=== PATIENT | female | born 1960 | race Hispanic/Latino ===

== ENCOUNTER → 2017-06-15 | Outpatient (CLI) | payer OTHER ==
[~2017-06-15] MED LIST: ABIL1TAB11 PO; ACID1CAP PO; ASPI1TAB PO; CALC600T60 PO; CARI350T PO; CENTTAB PO; CLON2TAB14 PO; COLA100C5 PO; COQ-200C PO; CRES40TA PO; CYTO50TA PO; D 50CAP PO; DIGO0.259 PO; FARX1TAB3 PO; FENO1CAP2 PO; FIOR1CAP PO; GABA-283 PO; GINK40TA3 PO; GREE150C PO; INSULADS SC; JANU50TA8 PO; LEVO88TA3 PO; LOMO2.5T PO; MAGN250T6 PO; METO1TAB7 PO; PHEN15TA11 PO; PROM12.55 PO; RANO5TAB PO; SUPETAB25 PO; VITA400C97 PO; VITAMIN B2; ZETI10TA30 PO; ZONI25CA2 PO; [UNRECOGNIZED DRUG - OTHER] PO
--- NOTE | 2017-06-15 12:56 | REPMRS ---
Patient History The patient states she had a clinical breast exam in 2016.Family history of ovarian cancer in maternal grandmother at age 68, breast cancer in 3 maternal cousins at age 50 or over, and colorectal cancer in brother at age 56. Retro-pectoral saline implants in both breasts, November 01, 1998. 5 pound weight loss since last mammogram. Digital Mammo Diagnostic Bilateral: June 15, 2017 - Exam #: [id number] Bilateral CC and MLO view(s) were taken. Technologist: Miracle Goldsmith, Technologist Prior study comparison: May 12, 2016, bilateral digital mammo screening bilat performed at [facility]. May 09, 2015, bilateral digital mammo screening bilat performed at [facility]. FINDINGS: There are scattered fibroglandular densities. There is a fairly symmetric fibroglandular pattern in both breasts. There has been no interval development of masses, areas of architectural distortion or clusters of microcalcifications typical of malignancy. ASSESSMENT: BI-RADS/ACR category 2 mammogram. Benign finding(s). Recommendation Routine screening mammogram of both breasts in 1 year (for women over age 40). This mammogram was interpreted with the aid of an FDA-approved computer-aided dectection system. Electronically Signed By: Will Beebe MD 06/15/17 [id number]
== END ==
LOC: M RAD 09:39
PROVIDERS: ATTEND Obstetrics & Gynecology
DX: Z12.31 Encounter for screening mammogram for malignant neoplasm of breast (principal); Z98.82 Breast implant status; Z80.3 Family history of malignant neoplasm of breast

== ENCOUNTER → 2017-08-12 | Outpatient (CLI) | payer OTHER ==
[2017-08-12 09:30] LABS: MEAN CORPUSCULAR HEMOGLOBIN 27.4 pg (27.0-33.0); MEAN CORPUSCULAR HGB CONC 32.5 g/dl (32.0-36.5); MEAN CORPUSCULAR VOLUME 84.3 fl (80.0-96.0); RED CELL DISTRIBUTION WIDTH 14.2 % (11.5-14.5); WHITE BLOOD COUNT 5.4 10^3/uL (4.0-10.0)
[2017-08-12 10:03] LABS: ALBUMIN 3.4 GM/DL (3.2-5.2); ALKALINE PHOSPHATASE 40 U/L (45-117); ALT/SGPT 20 U/L (12-78); ANION GAP 8 MEQ/L (8-16); AST/SGOT 18 U/L (15-37); BILIRUBIN,TOTAL 0.3 MG/DL (0.2-1.0); BLOOD UREA NITROGEN 17 MG/DL (7-18); CARBON DIOXIDE LEVEL 28 MEQ/L (21-32); CHLORIDE LEVEL 105 MEQ/L (98-107); CHOLESTEROL LEVEL 85 MG/DL (<200); CREATININE FOR GFR 0.49 MG/DL (0.55-1.02); GLOMERULAR FILTRATION RATE > 60.0 (>51); GLUCOSE, FASTING 79 MG/DL (70-105); POTASSIUM SERUM 3.8 MEQ/L (3.5-5.1); SODIUM LEVEL 141 MEQ/L (136-145); THYROXINE (T4) 2.1 UG/DL (4.5-12.0); TOTAL PROTEIN 6.5 GM/DL (6.4-8.2); TRIGLYCERIDES LEVEL 214 MG/DL (<150)
== END ==
LOC: M LAB 08:32
PROVIDERS: ATTEND Family Medicine
DX: R53.83 Other fatigue (principal); I10 Essential (primary) hypertension; E11.9 Type 2 diabetes mellitus without complications

== ENCOUNTER → 2017-08-12 | Outpatient (CLI) | payer OTHER | LOC: M LAB 08:46 | PROVIDERS: ATTEND Internal Medicine | DX: E11.9 Type 2 diabetes mellitus without complications (principal) ==

== ENCOUNTER → 2018-06-16 | Outpatient (CLI) | payer OTHER | LOC: M RAD 10:45 | DX: Z12.31 Encounter for screening mammogram for malignant neoplasm of breast (principal); Z98.82 Breast implant status | CPT/HCPCS: 77067 ==

== ENCOUNTER → 2018-08-18 | Outpatient (CLI) | payer OTHER | LOC: M WHC 10:36 | DX: M85.80 Other specified disorders of bone density and structure, unspecified site (principal) | CPT/HCPCS: 77080 ==

== ENCOUNTER → 2018-12-02 | Outpatient (CLI) | payer OTHER ==
[~2018-12-02] MED LIST changes: +CARI1TAB7 PO; -CARI350T PO; -GABA-283 PO; +GABA-845 PO; -PROM12.55 PO; +PROM12.56 PO
[2018-12-02 11:20] LABS: HEMATOCRIT 40.6 % (36.0-47.0); HEMOGLOBIN 13.3 g/dl (12.0-15.5); MEAN CORPUSCULAR HGB CONC 32.8 g/dl (32.0-36.5); MEAN CORPUSCULAR VOLUME 88.6 fl (80.0-96.0); PLATELET COUNT, AUTOMATED 168 10^3/uL (150-450); RED BLOOD COUNT 4.58 10^6/uL (4.00-5.40); WHITE BLOOD COUNT 6.3 10^3/uL (4.0-10.0)
[2018-12-02 11:50] LABS: HEMOGLOBIN A1c 5.5 %
[2018-12-02 11:54] LABS: ALBUMIN 3.7 GM/DL (3.2-5.2); ALT/SGPT 23 U/L (12-78); BILIRUBIN,TOTAL 0.3 MG/DL (0.2-1.0); BLOOD UREA NITROGEN 20 MG/DL (7-18); CARBON DIOXIDE LEVEL 30 MEQ/L (21-32); CHLORIDE LEVEL 105 MEQ/L (98-107); FREE T4 0.28 NG/DL (0.76-1.46); GLOMERULAR FILTRATION RATE > 60.0 (>51); GLUCOSE, FASTING 74 MG/DL (70-100); POTASSIUM SERUM 3.9 MEQ/L (3.5-5.1); SODIUM LEVEL 142 MEQ/L (136-145); THYROID STIMULATING HORMONE 0.015 uIU/ML (0.358-3.740); TOTAL PROTEIN 6.5 GM/DL (6.4-8.2)
== END ==
LOC: M LAB 10:21
PROVIDERS: ATTEND Internal Medicine Cardiovascular Disease
DX: I10 Essential (primary) hypertension (principal)

== ENCOUNTER → 2018-12-02 | Outpatient (CLI) | payer OTHER ==
[2018-12-02 11:28] LABS: HEMOGLOBIN 13.4 g/dl (12.0-15.5); MEAN CORPUSCULAR HEMOGLOBIN 28.8 pg (27.0-33.0); MEAN CORPUSCULAR HGB CONC 31.9 g/dl (32.0-36.5); MEAN CORPUSCULAR VOLUME 90.3 fl (80.0-96.0); PLATELET COUNT, AUTOMATED 176 10^3/uL (150-450); RED BLOOD COUNT 4.65 10^6/uL (4.00-5.40); WHITE BLOOD COUNT 6.2 10^3/uL (4.0-10.0)
[2018-12-02 11:57] LABS: HEMOGLOBIN A1c 5.5 %
[2018-12-02 12:07] LABS: CREATININE, URINE 86.4 MG/DL; MALB URINE SIEMENS 31.9 MG/L; MAU/CREAT RATIO 36.9 MCG/MG (0.0-30.0)
[2018-12-02 12:19] LABS: ALBUMIN 3.7 GM/DL (3.2-5.2); ALT/SGPT 24 U/L (12-78); BILIRUBIN,TOTAL 0.3 MG/DL (0.2-1.0); BLOOD UREA NITROGEN 21 MG/DL (7-18); C REACTIVE PROTEIN QUANTITATIV 0.36 MG/DL (0.00-0.30); CALCIUM LEVEL 8.8 MG/DL (8.5-10.1); CARBON DIOXIDE LEVEL 29 MEQ/L (21-32); CHLORIDE LEVEL 105 MEQ/L (98-107); CHOLESTEROL LEVEL 83 MG/DL (<200); CHOLESTEROL RISK RATIO 1.886 (<5); CREATININE FOR GFR 0.51 MG/DL (0.55-1.30); GLOMERULAR FILTRATION RATE > 60.0 (>51); GLUCOSE, FASTING 75 MG/DL (70-100); HDL CHOLESTEROL 44 MG/DL (>40); LDL CHOLESTEROL 4 MG/DL (<100); NON-HDL-C 39 MG/DL; POTASSIUM SERUM 3.9 MEQ/L (3.5-5.1); SODIUM LEVEL 141 MEQ/L (136-145); THYROID STIMULATING HORMONE 0.015 uIU/ML (0.358-3.740); TOTAL PROTEIN 6.7 GM/DL (6.4-8.2); TRIGLYCERIDES LEVEL 173 MG/DL (<150)
== END ==
LOC: M LAB 10:14
PROVIDERS: ATTEND Family Medicine
DX: I10 Essential (primary) hypertension (principal)

== ENCOUNTER → 2019-06-19 | Outpatient (CLI) | payer OTHER ==
[~2019-06-19] MED LIST changes: -ASPI1TAB PO; +ASPI81TA26 PO; +FENO135C6 PO; -FENO1CAP2 PO; +RANO500T7 PO; -RANO5TAB PO; +ZETI10TA16 PO; -ZETI10TA30 PO
--- NOTE | 2019-06-19 09:37 | REPMRS ---
Patient History The patient states she had a clinical breast exam in 2017. Family history of ovarian cancer at age 68 in maternal grandmother, colorectal cancer at age 56 in brother, breast cancer at age 50 or over in maternal cousin, breast cancer at age 50 or over in maternal cousin, breast cancer at age 50 or over in maternal cousin. Retro-pectoral saline implants in both breasts, November 01, 1998. Taking estrogen for 6 months. Taking unspecified hormones for 20 years. Digital Mammo Screening Bilat: June 19, 2019 - Exam #: [id number] Bilateral CC and MLO view(s) were taken. Technologist: Miracle Goldsmith, Technologist Prior study comparison: June 16, 2018, bilateral digital mammo screening bilat performed at [facility]. June 15, 2017, digital mammo diagnostic bilateral performed at [facility]. FINDINGS: There are scattered fibroglandular densities. The visualized implant margins are smooth. Breast parenchymal density pattern is essentially symmetric. No dominant mass, grouped microcalcification, or architectural distortion is evident on either side. 3-D tomosynthesis shows no additional findings. No significant changes when compared with prior studies. Assessment: BI-RADS/ACR category 2 mammogram. Benign Findings. Recommendation Routine screening mammogram of both breasts in 1 year (for women over age 40). This patient's Lifetime Breast Cancer RIsk is estimated at 8.1 %. This mammogram was interpreted with the aid of an FDA-approved computer-aided dectection system. Electronically Signed By: Subhash Bauer MD 06/19/19 0937
== END ==
LOC: M RAD 08:22
PROVIDERS: ATTEND Obstetrics & Gynecology
DX: Z12.31 Encounter for screening mammogram for malignant neoplasm of breast (principal); Z98.82 Breast implant status; Z80.41 Family history of malignant neoplasm of ovary; Z80.0 Family history of malignant neoplasm of digestive organs; Z92.23 Personal history of estrogen therapy; Z92.29 Personal history of other drug therapy

== ENCOUNTER → 2019-10-03 | Outpatient (CLI) | payer OTHER ==
[~2019-10-03] MED LIST changes: +READI-CAT 2 As Ordered ONE
--- NOTE | 2019-10-03 14:11 | REP ---
Clinical: Right lower quadrant pain. Technique: Axial images of the pelvis using oral contrast (per protocol) with coronal and sagittal re-formations. Findings: Moderate fecal stasis and possible constipation may be related to patient's symptoms. Normal terminal ileum and appendix are identified in the right lower quadrant. Remainder of the small large bowel is grossly unremarkable. Visualized portions of the bilateral kidneys appear normal. Bladder is unremarkable. Evidence of prior hysterectomy. No ascites. No adenopathy. Osseous structures demonstrate age-related changes without focal abnormality. Impression: 1. Moderate fecal stasis and possible constipation possibly related to patient's symptoms. Electronically Signed by Rick Martin MD 10/03/2019 02:04 P
== END ==
LOC: M RAD 12:07
PROVIDERS: ATTEND Surgery
DX: K56.41 Fecal impaction (principal)

== ENCOUNTER → 2020-04-02 | Outpatient (REF) | payer OTHER ==
[~2020-04-02] MED LIST changes: -READI-CAT 2 As Ordered ONE; +ZONI25CA13 PO; -ZONI25CA2 PO
== END ==
LOC: M LAB REF 10:32
PROVIDERS: ATTEND Internal Medicine
DX: Z51.81 Encounter for therapeutic drug level monitoring (principal)

== ENCOUNTER → 2020-04-15 | Outpatient (CLI) | payer OTHER | LOC: M LABSMTC 12:26 | PROVIDERS: ATTEND Family Medicine | DX: Z03.818 Encounter for observation for suspected exposure to other biological agents ruled out (principal); Z11.59 Encounter for screening for other viral diseases | CPT/HCPCS: C9803; U0003 ==

== ENCOUNTER 2020-06-06 08:39 | Day surgery (SDC) | payer OTHER ==
[~2020-06-06 08:39] MED LIST changes: +BSS IRR 500ML/OMIDRIA 4ML IRR BAG (OR ONLY) (J1097 PER ML) As Ordered ONE; +DUOVISC (0.50ML VISCOAT/0.55ML PROVISC) OPHTH KIT As Ordered ONE; +OFLOXACIN 0.3 % (OCUFLOX) OPTH SOL 5ML As Ordered ONE; +PHENYLEPHRINE 2.5% OPHTH SOL 2ML As Ordered ONE; +POVIDONE-IODINE 5% OPHTH PREP SOL 30ML As Ordered ONE; +PROPARACAINE 0.5% OPHTH SOL 15ML As Ordered ONE; +TROPICAMIDE 1% OPHTH SOLN 2ML As Ordered ONE
[2020-06-06] MEDS ORDERED: CEFUROXIME 1MG/0.1ML INTRACAMERAL INJ As Ordered ONE (09:30)
[2020-06-06] MEDS ORDERED: fentaNYL 100 MCG/2 ML INJECTION (J3010) As Ordered ONE (09:38)
[2020-06-06] MEDS ORDERED: MIDAZOLAM INJ 2MG/2ML VIAL (J2250 PER 1MG) As Ordered ONE (09:38)
--- NOTE | 2020-07-02 08:24 | RO ---
DATE OF OPERATION: 06/06/2020 PREOPERATIVE DIAGNOSIS: 1. Visually significant nuclear sclerotic cataract, left eye. POSTOPERATIVE DIAGNOSIS: 1. Visually significant nuclear sclerotic cataract, left eye. PROCEDURE: 1. Cataract extraction with use of phacoemulsification, and placement of intraocular lens, AU00T0, 21.5D, left eye. SURGEON: Rosalino Benz DO CHANGE MANAGEMENT EXPERT: ANESTHESIA: Local (Omidria with MAC) COMPLICATIONS: None POSTOPERATIVE CONDITION: Stable INDICATIONS FOR SURGERY: 1. Blurred vision affecting patients activities of daily living DESCRIPTION OF PROCEDURE: The patient was seen in the preoperative area and properly identified. The correct operative eye was identified and marked. The patient received topical anesthetic, antibiotics, and topical dilating drops. The patient was then transferred to the operating room. The correct side was re-identified and a timeout was performed. The eye was prepped and draped in a sterile fashion. The eyelids were isolated with Tegaderm tape and the lids were held open with an adjustable speculum. A 1.0mm paracentesis incision was made. Omidria was then injected into the anterior chamber. Viscoelastic was then injected into the anterior chamber through the paracentesis. Using a 2.4mm sharp-tipped keratome, the anterior chamber was entered via a temporal clear cornea incision. A continuous curvilinear capsulorhexis was created with Utrata forceps. Hydrodissection was performed with BSS on a blunt cannula until the nucleus was able to rotate freely. The crystalline lens was phacoemulsified and aspirated. Irrigation/aspiration was used to remove the cortical material Cohesive viscoelastic was placed into the capsular bag to deepen it. The implant was placed into the capsular bag and allowed to unfold. Placement was confirmed by visualizing the anterior capsulorhexis. Irrigation/aspiration was used to remove the viscoelastic. The clear corneal incision was hydrated with BSS on a blunt cannula. The lens was well positioned. Intracameral antibiotic was injected into the anterior chamber. The incisions were then tested for leaks and found to be negative. The eye was then palpated for appropriate pressure and adjusted accordingly with BSS. The eyelid speculum was then carefully removed. A shield was placed over the eye. The patient tolerated the procedure well and was discharge to the recovery unit in a stable condition. SINCERE
[2020-08-14] MEDS ORDERED: DIGO0.259 PO (13:11)
[2020-08-14] MEDS ORDERED: ZETI10TA16 PO (13:11)
[2020-08-14] MEDS ORDERED: LIOT50TA PO (13:11)
[2020-08-14] MEDS ORDERED: TRIL135C6 PO (13:11)
[2020-08-14] MEDS ORDERED: ALEN70TA74 PO (13:11)
[2020-08-14] MEDS ORDERED: METF10004 PO (13:11)
[2020-08-14] MEDS ORDERED: CLAR10CA3 PO (13:11)
[2020-08-14] MEDS ORDERED: JARD1TAB3 PO ×2 (13:11→13:53)
[2020-08-14] MEDS ORDERED: AMBI6.25 PO (13:11)
[2020-08-14] MEDS ORDERED: ARIP1TAB PO (13:11)
[2020-08-14] MEDS ORDERED: SYNT88TA2 PO (13:11)
[2020-08-14] MEDS ORDERED: JANU100T PO (13:11)
[2020-08-14] MEDS ORDERED: RAMI1CAP21 PO (13:11)
[2020-08-14] MEDS ORDERED: NARD15TA PO (13:11)
[2020-08-14] MEDS ORDERED: NITR2OI TOP (13:11)
[2020-08-14] MEDS ORDERED: CELE1CAP9 PO (13:11)
[2020-08-14] MEDS ORDERED: INSULADS INJ (13:11)
[2020-08-14] MEDS ORDERED: LINZ290C PO (13:11)
[2020-08-14] MEDS ORDERED: INTR6.5S VA (13:11)
[2020-08-14] MEDS ORDERED: SYNT50TA PO (13:53)
[2020-08-14] MEDS ORDERED: D3 H10002 PO (13:53)
[2020-08-14] MEDS ORDERED: ZONI100C17 PO (13:53)
[2020-08-14] MEDS ORDERED: LIOT25TA8 PO (13:53)
[2020-08-14] MEDS ORDERED: PHEN15TA11 PO (13:53)
[2020-08-14] MEDS ORDERED: CLON1TAB8 PO (13:53)
[2020-08-14] MEDS ORDERED: PENT400T23 PO (13:54)
[2020-08-14] MEDS ORDERED: GALC120S SQ (14:14)
== END 2020-06-06 11:20 | disposition home or self-care (01) ==
LOC: M SDC 08:39
PROVIDERS: ATTEND Ophthalmology
DX: H25.12 Age-related nuclear cataract, left eye (principal); I25.10 Atherosclerotic heart disease of native coronary artery without angina pectoris; I10 Essential (primary) hypertension; E78.5 Hyperlipidemia, unspecified; E11.9 Type 2 diabetes mellitus without complications; E03.9 Hypothyroidism, unspecified; Z79.4 Long term (current) use of insulin; Z79.84 Long term (current) use of oral hypoglycemic drugs; Z79.899 Other long term (current) drug therapy; Z91.040 Latex allergy status; Z88.8 Allergy status to other drugs, medicaments and biological substances; F31.9 Bipolar disorder, unspecified; F41.9 Anxiety disorder, unspecified; G43.909 Migraine, unspecified, not intractable, without status migrainosus; Z91.013 Allergy to seafood
CPT/HCPCS: 66984; J1097; J2250; J3010

== ENCOUNTER → 2020-07-16 | Outpatient (CLI) | payer OTHER ==
[~2020-07-16] MED LIST changes: +ALEN70TA74 PO; +AMBI6.25 PO; +ARIP1TAB PO; -BSS IRR 500ML/OMIDRIA 4ML IRR BAG (OR ONLY) (J1097 PER ML) As Ordered ONE; +CELE1CAP9 PO; +CLAR10CA3 PO; +CLON1TAB8 PO; +D3 H10002 PO; -DUOVISC (0.50ML VISCOAT/0.55ML PROVISC) OPHTH KIT As Ordered ONE; +GALC120S SQ; +INSULADS INJ; +INTR6.5S VA; +JANU100T PO; +JARD1TAB3 PO; +LINZ290C PO; +LIOT25TA8 PO; +LIOT50TA PO; +METF10004 PO; +NARD15TA PO; +NITR2OI TOP; -OFLOXACIN 0.3 % (OCUFLOX) OPTH SOL 5ML As Ordered ONE; +PENT400T23 PO; -PHENYLEPHRINE 2.5% OPHTH SOL 2ML As Ordered ONE; -POVIDONE-IODINE 5% OPHTH PREP SOL 30ML As Ordered ONE; -PROPARACAINE 0.5% OPHTH SOL 15ML As Ordered ONE; +RAMI1CAP21 PO; +SYNT50TA PO; +SYNT88TA2 PO; +TRIL135C6 PO; -TROPICAMIDE 1% OPHTH SOLN 2ML As Ordered ONE; +ZONI100C17 PO
--- NOTE | 2020-07-16 12:50 | REPMRS ---
Patient History The patient states she had a clinical breast exam in 2018. Family history of ovarian cancer at age 68 in maternal grandmother, colorectal cancer at age 56 in brother, breast cancer at age 50 or over in maternal cousin, breast cancer at age 50 or over in maternal cousin, breast cancer at age 50 or over in maternal cousin. Retro-pectoral saline implants in both breasts, November 01, 1998. Taking estrogen for 6 months. Taking unspecified hormones for 20 years. Digital Woman Screen Mammo: July 16, 2020 - Exam #: [id number] Bilateral CC and MLO view(s) were taken. Technologist: Lana Chapman, Technologist Prior study comparison: June 19, 2019, bilateral digital mammo screening bilat, performed at [facility]. June 16, 2018, bilateral digital mammo screening bilat, performed at [facility]. FINDINGS: The breast tissue is extremely dense which could obscure a lesion on mammography. The visualized implant margins are smooth. Breast parenchymal density pattern is essentially symmetric. No dominant mass, grouped microcalcification, or architectural distortion is evident on either side. 3-D tomosynthesis shows no additional findings. Volpara density pattern: D. No significant changes when compared with prior studies. Assessment: BI-RADS/ACR category 2 mammogram. Benign Findings. Recommendation Routine screening mammogram of both breasts in 1 year (for women over age 40). This patient's Lifetime Breast Cancer RIsk is estimated at 7.8 %. This mammogram was interpreted with the aid of an FDA-approved computer-aided dectection system. Electronically Signed By: Subhash Bauer MD 07/16/20 [id number]
== END ==
LOC: M WHC 11:07
PROVIDERS: ATTEND Obstetrics & Gynecology
DX: Z12.31 Encounter for screening mammogram for malignant neoplasm of breast (principal); Z80.0 Family history of malignant neoplasm of digestive organs; Z79.899 Other long term (current) drug therapy; Z98.82 Breast implant status

== ENCOUNTER → 2020-08-14 | Outpatient (CLI) | payer OTHER | LOC: M LABSMTC 11:53 | PROVIDERS: ATTEND Anesthesiology | DX: Z01.812 Encounter for preprocedural laboratory examination (principal); Z20.828 Contact with and (suspected) exposure to other viral communicable diseases | CPT/HCPCS: C9803; U0003 ==

== ENCOUNTER 2020-08-19 10:48 | Day surgery (SDC) | payer OTHER ==
[~2020-08-19] VITALS: Ht 162.6 cm; Wt 57.6 kg
[~2020-08-19 10:48] MED LIST changes: +LIDOCAINE 2% 100MG/5ML SDV (FOR ANES.) As Ordered ONE; +NS 1,000 ML IV ONE; +propofoL 200 MG/20 ML VIAL As Ordered ONE
[2020-08-19] MEDS ORDERED: fentaNYL 100 MCG/2 ML INJECTION (J3010) As Ordered ONE (11:56)
--- NOTE | 2020-08-19 12:10 | ROOR ---
Patient Name: Shelli Bella Procedure Date: 08/19/2020 11:54 AM Date of : 1960 Age: 60 Room: [facility] Gender: Female Note Status: Finalized Procedure: Upper Endoscopy + Biopsies Indications: Heartburn, Weight loss Providers: Teodoro Benz MD Referring MD: Sisi ACEVEDO MD Requesting Provider: Medicines: Monitored Anesthesia Care Complications: No immediate complications. Procedure: Pre-Anesthesia Assessment: - The heart rate, respiratory rate, oxygen saturations, blood pressure, adequacy of pulmonary ventilation, and response to care were monitored throughout the procedure. The Endoscope was introduced through the mouth, and advanced to the second part of duodenum. The upper GI endoscopy was accomplished without difficulty. The patient tolerated the procedure well. Findings: The Z-line was regular and was found 40 cm from the incisors. No other significant abnormalities were identified in a careful examination of the stomach. Biopsies were taken with a cold forceps in the gastric antrum for Helicobacter pylori testing. The exam of the duodenum was otherwise normal. Biopsies for histology were taken with a cold forceps in the first portion of the duodenum for evaluation of celiac disease. The exam was otherwise without abnormality. Impression: - Z-line regular, 40 cm from the incisors. - The examination was otherwise normal. - Biopsies were taken with a cold forceps for Helicobacter pylori testing. - Biopsies were taken with a cold forceps for evaluation of celiac disease. - The examination was otherwise normal. Recommendation: - Patient has a contact number available for emergencies. The signs and symptoms of potential delayed complications were discussed with the patient. Return to normal activities tomorrow. Written discharge instructions were provided to the patient. - High fiber diet. - Discharge patient to home. - Follow an antireflux regimen. - Continue present medications. - Await pathology results. - Telephone GI clinic for pathology results in 1 week. - Return to referring physician. - The findings and recommendations were discussed with the patient. Teodoro Benz MD Tedooro Benz MD 08/19/2020 12:09:36 PM Electronically signed by Teodoro Benz MD Number of Addenda: 0 Note Initiated On: 08/19/2020 11:54 AM Estimated Blood Loss: Estimated blood loss: none.
[2020-08-19] MEDS ORDERED: PHENYLephrine HCL 500 MCG/5 ML (100MCG/ML) SYRINGE (J2370) As Ordered ONE (12:20)
--- NOTE | 2020-08-19 12:29 | ROOR ---
Patient Name: Shelli Bella Procedure Date: 08/19/2020 11:55 AM Date of : 1960 Age: 60 Room: [facility] Gender: Female Note Status: Finalized Procedure: Total Colonoscopy to Cecum Indications: Colon cancer screening in patient at increased risk: Colorectal cancer in brother Providers: Teodoro Benz MD Referring MD: Sisi ACEVEDO MD Requesting Provider: Medicines: Monitored Anesthesia Care Complications: No immediate complications. Procedure: Pre-Anesthesia Assessment: - The heart rate, respiratory rate, oxygen saturations, blood pressure, adequacy of pulmonary ventilation, and response to care were monitored throughout the procedure. The Colonoscope was introduced through the anus and advanced to the cecum, identified by appendiceal orifice and ileocecal valve. The colonoscopy was performed without difficulty. The patient tolerated the procedure well. The quality of the bowel preparation was excellent. Findings: The perianal and digital rectal examinations were normal. No other significant abnormalities were identified in a careful examination of the remainder of the colon. The exam was otherwise without abnormality on direct and retroflexion views. Impression: - The examination was otherwise normal on direct and retroflexion views. - No specimens collected. - The exam was otherwise normal to the cecum. Recommendation: - Patient has a contact number available for emergencies. The signs and symptoms of potential delayed complications were discussed with the patient. Return to normal activities tomorrow. Written discharge instructions were provided to the patient. - High fiber diet. - Discharge patient to home. - Continue present medications. - Repeat colonoscopy in 5 years for screening purposes. - Return to referring physician. - The findings and recommendations were discussed with the patient. Teodoro Benz MD Teodoro Benz MD 08/19/2020 12:29:00 PM Electronically signed by Teodoro Benz MD Number of Addenda: 0 Note Initiated On: 08/19/2020 11:55 AM Estimated Blood Loss: Estimated blood loss: none.
[2020-08-19 13:04] VITALS: BP 132/63
== END 2020-08-19 13:06 | disposition home or self-care (01) ==
LOC: M OPP 10:48
PROVIDERS: ATTEND Internal Medicine Gastroenterology
DX: Z12.11 Encounter for screening for malignant neoplasm of colon (principal); Z80.0 Family history of malignant neoplasm of digestive organs; R63.4 Abnormal weight loss; R12 Heartburn
CPT/HCPCS: 43239; 45378; 88305; J2370; J3010

== ENCOUNTER → 2020-09-04 | Outpatient (REF) | payer OTHER ==
[~2020-09-04] MED LIST changes: -LIDOCAINE 2% 100MG/5ML SDV (FOR ANES.) As Ordered ONE; -NS 1,000 ML IV ONE; -propofoL 200 MG/20 ML VIAL As Ordered ONE
[2020-09-04 19:32] LABS: DIGOXIN LEVEL 1.2 NG/ML (0.5-2.0)
== END ==
LOC: M LAB REF 16:57
PROVIDERS: ATTEND Internal Medicine
DX: R63.4 Abnormal weight loss (principal); Z51.81 Encounter for therapeutic drug level monitoring

== ENCOUNTER → 2020-09-11 | Outpatient (CLI) | payer OTHER ==
[~2020-09-11] MED LIST changes: +GASTROGRAFIN SOLUTION 30ML (Q9963) As Ordered ONE; +ISOVUE-370 76% 100ML VIAL As Ordered ONE
--- NOTE | 2020-09-12 07:33 | REP ---
INDICATION: LOWER ABD PAIN. COMPARISON: 10/03/2019 TECHNIQUE: Axial contrast-enhanced images from the lung bases to the pubic symphysis using 100 cc Isovue 370 intravenous contrast material. Precontrast and delayed images of the abdomen were obtained along with coronal and sagittal reformations. This CT examination was performed using the following dose reduction techniques: Automated exposure control, adjustment of mA and/or kv according to the patient's size, and the use of iterative reconstruction technique. FINDINGS: Liver, spleen, pancreas, and bilateral adrenal glands are normal. Kidneys demonstrate small simple benign cysts without perinephric stranding or hydronephrosis. Cholelithiasis noted without acute cholecystitis. The enteric system including stomach, small, and large bowel appears normal. No evidence for obstruction or acute inflammatory process. Normal terminal ileum and appendix are identified in the right lower quadrant. Pelvis demonstrates normal bladder and evidence for prior hysterectomy. No ascites. No free air. No intraperitoneal or retroperitoneal adenopathy. Abdominal aorta and vasculature appear normal. Musculoskeletal structures are intact and without acute osseous abnormality. IMPRESSION: No acute abdominopelvic pathology appreciated. <Electronically signed by Rick Martin > 09/12/20 [id number]
== END ==
LOC: M RAD 11:46
PROVIDERS: ATTEND Internal Medicine Gastroenterology
DX: R10.30 Lower abdominal pain, unspecified (principal)
CPT/HCPCS: 74178; Q9963; Q9967

== ENCOUNTER → 2020-09-23 | Outpatient (CLI) | payer OTHER ==
[~2020-09-23] MED LIST changes: -GASTROGRAFIN SOLUTION 30ML (Q9963) As Ordered ONE; -ISOVUE-370 76% 100ML VIAL As Ordered ONE
[2020-09-23 12:19] LABS: CK-MB VALUE MASS < 1.0 NG/ML (<3.6); CPK CREATINE PHOSPHOKINASE 39 U/L (26-192); MB/CK RELATIVE INDEX 2.56 (< OR =4); TROPONIN I < 0.02 NG/ML (< 0.10)
== END ==
LOC: M LAB 10:58
PROVIDERS: ATTEND Internal Medicine Cardiovascular Disease
DX: R07.9 Chest pain, unspecified (principal)

== ENCOUNTER → 2020-10-16 | Outpatient (CLI) | payer OTHER ==
--- NOTE | 2020-10-16 15:25 | REP ---
INDICATION: VENOUS INSUFFICIENCY ? REFLUX. COMPARISON: None. TECHNIQUE: Bilateral lower extremity Doppler ultrasound with reflux evaluation. FINDINGS: The deep veins are anechoic and fully compressible from the groin to the popliteal fossa in the right and left lower extremity. Color flow imaging is homogeneous. Spectral Doppler interrogation demonstrates intact respiratory variation in flow and normal manual augmentation of flow. There is no evidence of deep vein thrombosis. Reflux evaluation. In the right lower extremity no deep or superficial system reflux was observed or elicited. The right greater saphenous vein measures 6.7 mm in greatest diameter proximally, 3.6 mm at mid thigh, and 3.9 mm at the knee. The lesser saphenous vein on the right measures 1.9 mm. In the left lower extremity 2 collaterals are seen coming off the greater saphenous vein distally with reflux. Reflux was observed in the greater saphenous vein and lesser saphenous vein in the left. No deep system reflux is observed. The left greater saphenous vein measures 7.7 mm in greatest diameter proximally and displays 2.2 second duration reflux. At mid thigh, its diameter is 3.0 mm and reflux duration 4.15 seconds. At the knee, the greater saphenous vein diameter is 3.8 mm and reflux duration is 0.6 seconds. Lesser saphenous vein is 2.8 mm in diameter and displaced 2.92 second duration reflux. IMPRESSION: There is no evidence of deep vein thrombosis in either side. No reflux was noted on the right. Superficial system reflux is observed on the left as above.. <Electronically signed by Subhash Bauer > 10/16/20 [id number]
== END ==
LOC: M RAD 11:03
PROVIDERS: ATTEND Surgery Vascular Surgery
DX: I87.2 Venous insufficiency (chronic) (peripheral) (principal)

== ENCOUNTER → 2021-07-29 | Outpatient (CLI) | payer OTHER ==
[~2021-07-29] MED LIST changes: -ALEN70TA74 PO; +ALEN70TA82 PO; +ARIP10TA32 PO; -ARIP1TAB PO; +GABA-283 PO; -GABA-845 PO
--- NOTE | 2021-07-29 14:50 | REPMRS ---
Patient History The patient states she had a clinical breast exam in October 2020. Family history of ovarian cancer at age 68 in maternal grandmother, colorectal cancer at age 56 in brother, breast cancer at age 50 or over in maternal cousin, breast cancer at age 50 or over in maternal cousin, breast cancer at age 50 or over in maternal cousin. Retro-pectoral saline implants in both breasts, November 01, 1998. Taking estrogen for 6 months. Taking unspecified hormones for 21 years. Patient states no breast complaints today. Patient has signed MRS History Sheet. Digital Woman Screen Mammo: July 29, 2021 - Exam #: [id number] Bilateral CC and MLO view(s) were taken. Technologist: Rimma Hsu, Technologist Prior study comparison: July 16, 2020, bilateral digital woman screen mammo performed at [facility]. June 19, 2019, bilateral digital mammo screening bilat, performed at [facility]. FINDINGS: The breast tissue is extremely dense which could obscure a lesion on mammography. Screening. Digital screening (2D) mammography was performed bilaterally in the CC and MLO projections. Additionally, breast tomosynthesis (3D mammography) was performed bilaterally in the CC and MLO projections. Todays exam was compared to the prior exam/exams.Both Freddy and non-Freddy views were obtained. By history, the patient has no complaints of a palpable breast abnormality or other significant breast complaints. The breasts are unchanged in size and shape. Once again, dense heterogenous fibroglandular elements are seen bilaterally in a stable appearing pattern but to such a degree that the sensitivity of the mammogram in detecting cancer is decreased.There are no teresa-soft tissue densities or spiculated masses. There is no internal architectural distortion. Once again, stable benign appearing calcifications are seen.There are no suspicious teresa-calcific clusters. Skin thickening or nipple retraction is not present. IMPRESSION: BI-RADS Category 2- Benign Findings. There is no evidence of malignant alteration of the breasts. Followup examination recommended in one year. The Volpara volumetric breast density category is D, the breasts are extremely dense which lowers the sensitivity of mammography. This mammogram was read with the assistance of [employer],an FDA approved computer aided detection system for mammography. The lifetime Tyrer-Cuzick score is 7.5 % Due to the density of the breasts or Tyrer Cuzick score of 20% or greater, MRI/whole breast screening ultrasound is warranted. Negative x-ray reports should not delay surgical consultation if a dominant or clinically suspicious mass is present. Not all breast cancers can be identified by mammography. Therefore, we recommend that you continue to perform regular breast self-examination and physical examination and then promptly contact your physician of any concerns or changes. Adenosis and dense breasts may obscure an underlying neoplasm. Assessment: BI-RADS/ACR category 2 mammogram. Benign Findings. Recommendation Routine screening mammogram of both breasts in 1 year. Electronically Signed By: Ricco Akbar DO 07/29/21 [id number]
== END ==
LOC: M WHC 13:57
PROVIDERS: ATTEND Obstetrics & Gynecology
DX: R92.1 Mammographic calcification found on diagnostic imaging of breast (principal)

== ENCOUNTER → 2021-09-16 | Outpatient (REF) | payer OTHER | LOC: M LAB REF 16:32 | PROVIDERS: ATTEND Internal Medicine | DX: Z79.899 Other long term (current) drug therapy (principal) ==

== ENCOUNTER → 2022-01-22 | Outpatient (CLI) | payer OTHER | LOC: M RAD 11:38 | PROVIDERS: ATTEND Internal Medicine | DX: R10.2 Pelvic and perineal pain (principal); M54.2 Cervicalgia; M16.0 Bilateral primary osteoarthritis of hip ==

== ENCOUNTER → 2022-01-28 | Outpatient (CLI) | payer OTHER | LOC: M WHC 10:09 | PROVIDERS: ATTEND Internal Medicine | DX: M85.851 Other specified disorders of bone density and structure, right thigh (principal); M85.852 Other specified disorders of bone density and structure, left thigh ==

== ENCOUNTER → 2022-10-21 | Outpatient (REF) | payer OTHER ==
[~2022-10-21] MED LIST changes: -PHEN15TA11 PO; +PHEN15TA12 PO; -ZONI100C17 PO; +ZONI100C67 PO
[2022-10-21 17:56] LABS: FOLATE > 24.0 NG/ML (>5.4); THYROID STIMULATING HORMONE 0.586 uIU/ML (0.55-4.78); THYROXINE (T4) 4.9 UG/DL (4.5-10.9)
[2022-10-21 17:57] LABS: FREE THYROXINE INDEX 1.2 % (1.3-4.8); T UPTAKE 23.6 % (22.5-37.0)
[2022-10-21 18:00] LABS: VITAMIN B12 LEVEL 818 PG/ML (211-911)
[2022-10-26 16:09] LABS: VITAMIN B1 LEVEL WHOLE BLOOD 293.7 nmol/L (66.5-200.0); VITAMIN B6,PYRIDOXAL PHOSPHATE 21.5 ug/L (3.4-65.2); VITAMIN E(ALPHA TOCOPHEROL) 14.3 mg/L (9.0-29.0); VITAMIN E(GAMMA TOCOPHEROL) 0.4 mg/L (0.5-4.9)
== END ==
LOC: M LAB REF 16:24
PROVIDERS: ATTEND Internal Medicine
DX: R41.3 Other amnesia (principal)

== ENCOUNTER → 2023-01-06 | Outpatient (REF) | payer OTHER | LOC: M SFHCWAGY 17:43 | PROVIDERS: ATTEND Specialist | DX: Z01.419 Encounter for gynecological examination (general) (routine) without abnormal findings (principal); N95.2 Postmenopausal atrophic vaginitis | CPT/HCPCS: 87624; G0123 ==

== ENCOUNTER → 2023-01-06 | Outpatient (CLI) | payer OTHER | LOC: M WHC 13:55 | PROVIDERS: ATTEND Specialist | DX: Z12.31 Encounter for screening mammogram for malignant neoplasm of breast (principal) ==

== ENCOUNTER → 2023-02-03 | Outpatient (REF) | payer OTHER | LOC: M LAB REF 12:53 | PROVIDERS: ATTEND Internal Medicine | DX: Z51.81 Encounter for therapeutic drug level monitoring (principal) ==

== ENCOUNTER → 2023-08-26 | Outpatient (CLI) | payer OTHER ==
[~2023-08-26] MED LIST changes: +CELE0.09 PO; -CELE1CAP9 PO; +EZET10TA58 PO; -GABA-283 PO; +GABA-284 PO; -ZETI10TA16 PO
== END ==
LOC: M SLEEP HO 07-06 10:06
PROVIDERS: ATTEND Nurse Practitioner Family
DX: G47.33 Obstructive sleep apnea (adult) (pediatric) (principal)

== ENCOUNTER → 2023-12-08 | Outpatient (REF) | payer OTHER ==
[2023-12-08 17:12] LABS: APPEARANCE, URINE HAZY (CLEAR); BACTERIA, URINE AUTO NEGATIVE (NEGATIVE); BILIRUBIN, URINE AUTO NEGATIVE (NEGATIVE); BLOOD, URINE BLOOD NEGATIVE (NEGATIVE); COLOR, URINE YELLOW (YELLOW); GLUCOSE, URINE (UA) AUTO 3+ mg/dL (NEGATIVE); KETONE, URINE AUTO NEGATIVE (NEGATIVE); LEUKOCYTE ESTERASE, URINE AUTO 1+ (NEGATIVE); MUCUS, URINE SMALL (NEGATIVE); NITRITE, URINE AUTO NEGATIVE (NEGATIVE); PROTEIN, URINE AUTO NEGATIVE (NEGATIVE); RBC, URINE AUTO 7 /HPF (0-3); SPECIFIC GRAVITY URINE AUTO 1.027 (1.002-1.035); SQUAMOUS EPITHELIAL CELL UR AU 2 /HPF (0-6); UROBILINOGEN, URINE AUTO 0.2 mg/dL (0.0-2.0); WBC, URINE AUTO 20 /HPF (0-3)
== END ==
LOC: M LAB REF 16:29
PROVIDERS: ATTEND Internal Medicine
DX: R30.0 Dysuria (principal)

== ENCOUNTER → 2023-12-15 | Outpatient (REF) | payer OTHER ==
[2023-12-15 16:56] LABS: APPEARANCE, URINE HAZY (CLEAR); BACTERIA, URINE AUTO NEGATIVE (NEGATIVE); BILIRUBIN, URINE AUTO NEGATIVE (NEGATIVE); BLOOD, URINE BLOOD NEGATIVE (NEGATIVE); COLOR, URINE AMBER (YELLOW); GLUCOSE, URINE (UA) AUTO 3+ mg/dL (NEGATIVE); KETONE, URINE AUTO NEGATIVE (NEGATIVE); LEUKOCYTE ESTERASE, URINE AUTO NEGATIVE (NEGATIVE); MUCUS, URINE SMALL (NEGATIVE); NITRITE, URINE AUTO NEGATIVE (NEGATIVE); PROTEIN, URINE AUTO 1+ mg/dL (NEGATIVE); RBC, URINE AUTO 0 /HPF (0-3); SPECIFIC GRAVITY URINE AUTO 1.033 (1.002-1.035); SQUAMOUS EPITHELIAL CELL UR AU 2 /HPF (0-6); UROBILINOGEN, URINE AUTO 0.2 mg/dL (0.0-2.0); WBC, URINE AUTO 0 /HPF (0-3)
== END ==
LOC: M LAB REF 16:16
PROVIDERS: ATTEND Nurse Practitioner Family
DX: R30.0 Dysuria (principal)

== ENCOUNTER → 2024-01-11 | Outpatient (CLI) | payer OTHER | LOC: M WHC 09:52 | PROVIDERS: ATTEND Specialist | DX: Z12.31 Encounter for screening mammogram for malignant neoplasm of breast (principal); R92.323 Mammographic fibroglandular density, bilateral breasts; Z98.82 Breast implant status ==

== ENCOUNTER → 2024-03-03 | Outpatient (REF) | payer MEDICARE, OTHER ==
[~2024-03-03] MED LIST changes: +RAMI1.258 PO; -RAMI1CAP21 PO
== END ==
LOC: M LAB REF 11:34
PROVIDERS: ATTEND Internal Medicine
DX: Z51.81 Encounter for therapeutic drug level monitoring (principal); Z79.899 Other long term (current) drug therapy

== ENCOUNTER → 2024-09-21 | Outpatient (REF) | payer MEDICARE, OTHER ==
[~2024-09-21] MED LIST changes: -ARIP10TA32 PO; +ARIP10TA63 PO
[2024-09-21 14:13] LABS: C REACTIVE PROTEIN QUANTITATIV < 0.40 MG/DL (<1.0)
== END ==
LOC: M LAB REF 13:08
PROVIDERS: ATTEND Internal Medicine
DX: Z51.81 Encounter for therapeutic drug level monitoring (principal); I73.00 Raynaud's syndrome without gangrene; Z79.899 Other long term (current) drug therapy

== ENCOUNTER → 2024-09-27 | Outpatient (CLI) | payer MEDICARE | LOC: M WHC 14:32 | PROVIDERS: ATTEND Internal Medicine | DX: M85.852 Other specified disorders of bone density and structure, left thigh (principal); M85.851 Other specified disorders of bone density and structure, right thigh ==

== ENCOUNTER → 2025-02-13 | Outpatient (CLI) | payer MEDICARE ==
[~2025-02-13] MED LIST changes: +CARI-555 PO; -CARI1TAB7 PO
== END ==
LOC: M WHC 14:01
PROVIDERS: ATTEND Nurse Practitioner Family
DX: E03.9 Hypothyroidism, unspecified (principal)

== ENCOUNTER → 2025-03-13 | Outpatient (REF) | payer MEDICARE ==
[~2025-03-13] MED LIST changes: -AMBI6.25 PO; +ZOLP6.2544 PO
== END ==
LOC: M LAB REF 11:45
PROVIDERS: ATTEND Internal Medicine
DX: Z51.81 Encounter for therapeutic drug level monitoring (principal)

== ENCOUNTER → 2025-03-15 | Outpatient (REF) | payer MEDICARE | LOC: M LAB REF 13:02 | PROVIDERS: ATTEND Internal Medicine | DX: F31.81 Bipolar II disorder (principal); Z79.899 Other long term (current) drug therapy ==

== ENCOUNTER → 2025-07-23 | Outpatient (REF) | payer MEDICARE, OTHER ==
[~2025-07-23] MED LIST changes: +ASPI-255 PO; +COQ150CH PO; +DIGO0.253 PO; +JANU100T14 PO; +NIFE10CA61 PO; +NITR0.4S14 SL; +PRES10CA2 PO; +RANO10002 PO; +RANO500T2 PO; +THERTAB52 PO; +TRIL45CA2 PO; +VITA1TAB82 PO
== END ==
LOC: M SFHCWAGY 18:03
PROVIDERS: ATTEND Specialist
DX: Z01.419 Encounter for gynecological examination (general) (routine) without abnormal findings (principal)

== ENCOUNTER → 2025-07-23 | Outpatient (CLI) | payer MEDICARE, OTHER | LOC: M WHC 14:32 | PROVIDERS: ATTEND Specialist | DX: Z12.31 Encounter for screening mammogram for malignant neoplasm of breast (principal); R92.313 Mammographic fatty tissue density, bilateral breasts ==

== ENCOUNTER → 2025-08-07 | Outpatient (CLI) | payer MEDICARE, OTHER | LOC: M SLEEP 20:00 | PROVIDERS: ATTEND Physician Assistant | DX: G47.33 Obstructive sleep apnea (adult) (pediatric) (principal) ==